=== PATIENT | female | born 1950 | race Caucasian/White ===

== ENCOUNTER 2019-08-09 12:38 | Emergency (ER) | payer BC ==
[~2019-08-09] VITALS: Ht 149.9 cm; Wt 59.0 kg
[2019-08-09 12:52] VITALS: BP 146/80
== END 2019-08-09 13:32 | disposition home or self-care (01) ==
LOC: ER 12:38
DX: S60.456A Superficial foreign body of right little finger, initial encounter (principal); E78.5 Hyperlipidemia, unspecified; W45.8XXA Other foreign body or object entering through skin, initial encounter; Y93.89 Activity, other specified; Y92.89 Other specified places as the place of occurrence of the external cause; Y99.8 Other external cause status